=== PATIENT | female | born 1975 | race African-American/Black ===

== ENCOUNTER 2022-06-21 07:06 | Outpatient (CLI) | payer BC ==
[2022-06-21] MEDS ORDERED: Iopamidol 300 61% 100 ML VIAL FS ONE (09:47)
== END 2022-06-21 07:07 | disposition home or self-care (01) ==
LOC: CSHCT 07:06
PROVIDERS: ATTEND Nurse Practitioner Family
DX: N28.89 Other specified disorders of kidney and ureter (principal)
CPT/HCPCS: 74170